=== PATIENT | female | born 1970 | race Caucasian/White ===

== ENCOUNTER 2023-11-04 16:52 | Emergency (ER) | payer BC ==
[~2023-11-04] VITALS: Ht 172.7 cm; Wt 113.6 kg
[2023-11-04] MEDS ORDERED: LANSOPRAZOLE30 MG PO (17:07)
[2023-11-04] MEDS ORDERED: LIPITOR 10M10 MG/TAB PO (17:07)
[2023-11-04] MEDS ORDERED: ZOLOFT 100MG100 MG PO (17:07)
[2023-11-04] MEDS ORDERED: SEROQUEL 2525 MG/TAB PO (17:08)
[2023-11-04 17:44] LABS: BASO # 0.02 K/mm3 (0.02-0.10); EOS # 0.36 K/mm3 (0.04-0.40); HEMATOCRIT 45.3 % (37.0-47.0); HEMOGLOBIN 14.9 g/dL (12.5-16.0); LYMPH# 3.11 K/mm3 (1.50-4.00); MEAN CELL VOLUME 83 fl (78-100); MEAN CORPUSCULAR HEMOGLOBIN 27 pg (27-31); MEAN CORPUSCULAR HGB CONC 33 g/dL (33-37); MEAN PLATELET VOLUME 9.1 fl (7.4-10.4); NEU # 13.15 K/mm3 (1.40-6.50); PLATELET COUNT 238 K/mm3 (130-400); RED BLOOD COUNT 5.44 M/mm3 (4.10-5.30); RED CELL DISTRIBUTION WIDTH 13.2 % (11.5-14.5)
[2023-11-04] MEDS ORDERED: fentaNYL 100 MCG/2 ML VIAL IV ONE (17:45)
[2023-11-04 17:54] LABS: CALCIUM 8.9 mg/dL (8.3-10.5)
[2023-11-04 17:55] LABS: TOTAL PROTEIN 6.5 g/dL (6.4-8.3)
[2023-11-04 17:57] LABS: TOTAL BILIRUBIN 0.6 mg/dL (0.2-1.2)
[2023-11-04] MEDS ORDERED: Iohexol 300 - 100 ML VIAL IV ONE (18:53)
[2023-11-04] MEDS ORDERED: Morphine 4 MG/ML VIAL IV ONE ×2 (20:00→20:15)
[2023-11-04 21:23] LABS: URINE WBC 0 /hpf (0-3)
[2023-11-04 21:34] LABS: URINE APPEARANCE CLEAR (CLEAR); URINE BILIRUBIN NEGATIVE (NEGATIVE); URINE BLOOD NEGATIVE (NEGATIVE); URINE COLOR YELLOW (YELLOW); URINE GLUCOSE NEGATIVE (NEGATIVE); URINE KETONE NEGATIVE (NEGATIVE); URINE LEUKOCYTE ESTERASE NEGATIVE (NEGATIVE); URINE NITRATE NEGATIVE (NEGATIVE); URINE PROTEIN(semi-quant) NEGATIVE (NEGATIVE)
[2023-11-04] MEDS ORDERED: NORCO 325 MG-51 TA1 PO (21:56)
[2023-11-04 22:15] VITALS: BP 131/60
[2023-11-04] MEDS ORDERED: Home HYDROcodone/Acetaminophen 5/325 MG #4 TABS/PACK PO ONE (22:15)
== END 2023-11-04 22:15 | disposition home or self-care (01) ==
LOC: ED 16:52
PROVIDERS: Family Medicine
DX: R16.1 Splenomegaly, not elsewhere classified (principal); R10.12 Left upper quadrant pain
CPT/HCPCS: J2270; J3010; Q9967